=== PATIENT | female | born 1930 | race Caucasian/White ===

== ENCOUNTER 2020-08-03 14:31 | Emergency (ER) | payer MEDICARE ==
[~2020-08-03] VITALS: Ht 165.1 cm; Wt 77.1 kg
[2020-08-03 15:58] LABS: ABSOLUTE NEUTROPHILS 2.3 thou/uL (1.4-8.2); BASOPHILS 0.9 % (0.0-2.0); EOSINOPHILS 4.3 % (0.0-3.0); HEMATOCRIT 34.7 % (37.0-47.0); HEMOGLOBIN 11.3 gm/dL (12.0-15.0); LYMPHOCYTES 32.7 % (24.0-44.0); MCH 31.2 pg (26.0-34.0); MCHC 32.7 g/dL (28.0-37.0); MCV 95.4 fL (80.0-100.0); MONOCYTES 10.2 % (1.0-8.0); PLATELET COUNT 176 thou/uL (150-400); POLYS 51.9 % (36.0-66.0); RBC 3.64 mil/uL (4.20-5.00); RDW 14.2 % (10.5-14.5); WBC 4.4 thou/uL (4.0-11.0)
[2020-08-03] MEDS ORDERED: EUTHYROX50 MCG PO (16:09)
[2020-08-03] MEDS ORDERED: POTASSIUM CHLO20 ME2 PO (16:09)
[2020-08-03] MEDS ORDERED: LOSARTAN POTAS100 MG PO (16:10)
[2020-08-03] MEDS ORDERED: VITAMIN D21250 MC1 PO (16:10)
[2020-08-03] MEDS ORDERED: CARVEDILOL3.125 MG PO (16:10)
[2020-08-03] MEDS ORDERED: NORVASC5 MG PO (16:11)
[2020-08-03 16:16] LABS: CALCIUM 8.7 mg/dL (8.5-10.1); CREATININE 1.2 mg/dL (0.6-1.0)
[2020-08-03 16:17] LABS: ALBUMIN 3.4 g/dL (3.4-5.0); TOTAL BILIRUBIN 0.4 mg/dL (0.2-1.0); TOTAL PROTEIN 6.3 g/dL (6.4-8.2)
[2020-08-03 16:18] LABS: ALBUMIN 3.4 g/dL (3.4-5.0); DIRECT BILIRUBIN 0.1 mg/dL (<0.1-0.2); SGOT 17 U/L (15-37); SGPT 15 U/L (30-65); TOTAL BILIRUBIN 0.4 mg/dL (0.2-1.0); TOTAL PROTEIN 6.2 g/dL (6.4-8.2); TROPONIN-I <0.06 ng/mL (<0.06)
[2020-08-03 19:06] VITALS: BP 125/45
--- NOTE | 2020-08-04 07:06 | EKG ---
[address] [place] [address] ELECTROCARDIOGRAM REPORT Name: RAMON SALCIDO Room #: DEP Contreras#: [id number] Admission: 08/03/20 Attend Phys: Discharge: 08/03/20 Date of : [birth year] Report #: [id number] [facility] ED Test Date: 2020-08-03 Test Time: 16:10:38 Pat Name: RAMON SALCIDO Department: Room: Gender: F Porter Baggage: BESSIE : [id number] Requested By: Ignacio Spicer Order Number: [id number] MD: Rigo Hahn Measurements Intervals [place] Rate: 54 P: 46 IA: 188 QRS: 0 QRSD: 115 T: 107 QT: 474 QTc: 450 Interpretive Statements Sinus rhythm Left ventricular hypertrophy No previous ECG available for comparison Electronically Signed On 08-04-2020 7:06:28 [employer] by Rigo Hahn [email or web address] <ELECTRONICALLY SIGNED> By: Rigo Hahn MD, [facility] 08/04/20 [id number] 1610 Rigo Hahn MD, FACC /EPI
== END 2020-08-03 19:06 | disposition home or self-care (01) ==
LOC: ER 14:31
PROVIDERS: Emergency Medicine
DX: M13.862 Other specified arthritis, left knee (principal); R60.0 Localized edema; E03.9 Hypothyroidism, unspecified; I11.0 Hypertensive heart disease with heart failure; I50.9 Heart failure, unspecified; Z88.5 Allergy status to narcotic agent; Z79.899 Other long term (current) drug therapy